=== PATIENT | male | born 1970 | race Caucasian/White ===

== ENCOUNTER → 2020-10-22 04:03 | Outpatient (CLI) | payer OTHER, SELFPAY ==
[2020-10-23 21:09] LABS: SARS-CoV-2 RNA PCR Positive
== END ==
PROVIDERS: PCP Nurse Practitioner Adult Health; Visit Provider Nurse Practitioner Adult Health
DX: U07.1 COVID-19 (principal)
CPT/HCPCS: C9803; U0003; U0005

== ENCOUNTER 2020-11-21 02:31 | Day surgery (SDC) | payer OTHER, SELFPAY ==
[2020-11-08 12:25] VITALS: BMI 34.5
--- NOTE | 2020-11-21 07:50 | P.PNAN_ITS ---
Anes - Initial Pre Proc Eval Procedure: Operation Date: 11/21/20 10:00 Proposed Procedures p Screening Colonoscopy - Deejay Hicks MD Date/Time: 11/21/20 07:50 Surgeon: Deejay Hicks MD Pre Op Diagnosis: neoplasm screening Patient Data Age: 50 Gender: M Height: 1.7 m Weight: 100 kg Allergies Allergy/AdvReac Type Severity Reaction Status Date / Time No Known Allergies Allergy Unverified 11/08/20 12:23 Home Medications Medication Instructions Recorded Confirmed Type metformin 500 mg PO DAILY 11/08/20 11/08/20 History niacin 500 mg PO DAILY 11/08/20 11/08/20 History Patient hx anesthesia problems: none Family hx anesthesia problems: none [facility] Past Medical History Medical History (Updated 11/21/20 @ 09:44 by Deejay Hicks MD) Depression Hyperlipidemia Social History Social History (System 10/26/20 @ 16:19 by Buck Pierce) Smoking status: Never smoker Alcohol intake: current Drinks per week: 1 Living arrangements: with family Spiritual care concerns: No Anes - Eval Final PreProcedure Day of Procedure 11/21/20 07:50 Patient weight: obese Heart: regular rate and rhythm Lungs: clear to auscultation and normal air movement Airway: Mallampati scale class II Neurological: alert and oriented Last oral intake: >/= 8 hours ASA classification: II Emergent: no Anesthetic plan: proceed Anesthesia type and monitoring: general GIVS and standard monitoring Informed Consent: The patient's anesthetic plan and its attendant risks and benefits were discussed with the patient/family/POA. Questions were solicited and answers provided to the satisfaction of the patient/family/POA.
[2020-11-21 09:00] VITALS: BP 115/97; PULSE 72; RESP 20; TEMP 36.4; O2SAT 97
[2020-11-21] MEDS: LACTATED RINGERS 1,000 ML 150 ML IV CONT (09:07)
[2020-11-21 09:14] LABS: Glucose Point of Care 118 mg/dl (65-105)
[2020-11-21 09:43] VITALS: BP 127/87; PULSE 74; RESP 18; O2SAT 97
--- NOTE | 2020-11-21 09:43 | WPDGICN ---
Assessment and Plan Assessment and plan (1) Encounter for screening colonoscopy: Code(s): Z12.11 - Encounter for screening for malignant neoplasm of colon Status: Acute Assessment and Plan: Patient presents for screening colonoscopy. Appears to be at average risk for colon polyps. GI Consult Note Consult date/time: 11/21/20 09:43 HPI: Santy Olivier is a 50 year old male Presents for screening colonoscopy. Patient reports his current weight appetite bowel movements are normal. Patient denies abdominal pain. He has had no bleeding. Family history is noncontributory. He presents for neoplasia screening today. Review of Systems Review of Systems: All systems reviewed & are unremarkable except as noted in HPI and below PMFSH Past Medical History Medical History (Updated 11/21/20 @ 09:44 by Deejay Hicks MD) Depression Hyperlipidemia Social History Social History (System 10/26/20 @ 16:19 by Buck Pierce) Smoking status: Never smoker Alcohol intake: current Drinks per week: 1 Living arrangements: with family Spiritual care concerns: No Meds Home Medications and Allergies Home Medications Medication Instructions Recorded Confirmed Type metformin 500 mg PO DAILY 11/08/20 11/08/20 History niacin 500 mg PO DAILY 11/08/20 11/08/20 History Allergies Allergy/AdvReac Type Severity Reaction Status Date / Time No Known Allergies Allergy Unverified 11/08/20 12:23 Vital Signs Vital Signs - 24 hr 11/21/20 09:00 Temperature 97.6 F Pulse Rate 72 Respiratory Rate 20 Blood Pressure 115/97 H Pulse Oximetry 97 Exam Narrative: Physical exam reveals patient to be alert. Vital signs are stable. HEENT exam is unremarkable. Patient is anicteric. Lungs are clear to auscultation and percussion. Heart is without murmur or extra sounds. Abdominal exam bowel sounds are present soft nontender with no organomegaly. Digital external rectal exam is normal.
[2020-11-21 09:53] VITALS: BP 119/81; PULSE 67; RESP 15; O2SAT 97
[2020-11-21 10:03] VITALS: BP 111/77; PULSE 65; RESP 22; O2SAT 98
== END 2020-11-21 10:21 | disposition home or self-care (01) ==
PROVIDERS: PCP Nurse Practitioner Adult Health; Visit Provider Internal Medicine Gastroenterology
PROC: 0DJD8ZZ Inspection of Lower Intestinal Tract, Via Natural or Artificial Opening Endoscopic (ICD-10-PCS; CPT 45378; principal; 2020-11-21 10:00)
DX: Z12.11 Encounter for screening for malignant neoplasm of colon (principal); D12.5 Benign neoplasm of sigmoid colon; K64.8 Other hemorrhoids; E78.5 Hyperlipidemia, unspecified; F32.9 Major depressive disorder, single episode, unspecified; E66.9 Obesity, unspecified; Z68.33 Body mass index [BMI] 33.0-33.9, adult
CPT/HCPCS: 45385; 82948; 88305; J2704; J7120